=== PATIENT | male | born 1960 ===

== ENCOUNTER → 2020-04-22 15:55 | Outpatient (CLI) | payer OTHER ==
[~2020-04-22 15:55] MED LIST: BANOPHEN25 MG; CARAFATE1 GM PO; EYE WASH SOLUT; PRILOSEC OTC20 MG PO; SILDENAFIL CITR50 MG; [UNRECOGNIZED DRUG - OTHER]
== END | disposition home or self-care (01) ==
LOC: LAB 15:55
PROVIDERS: ATTEND Radiology Diagnostic Radiology
DX: N20.0 Calculus of kidney (principal)

== ENCOUNTER 2020-04-23 07:15 | Inpatient (IN) | payer OTHER ==
[~2020-04-23] VITALS: Ht 177.8 cm; Wt 70.3 kg
[2020-04-23] MEDS ORDERED: PRILOSEC OTC20 MG PO (11:40)
[2020-04-23] MEDS ORDERED: CARAFATE1 GM PO (11:40)
[2020-05-02] MEDS ORDERED: BANOPHEN25 MG (08:19)
[2020-05-02] MEDS ORDERED: SILDENAFIL CITR50 MG (08:19)
[2020-05-02] MEDS ORDERED: EYE WASH SOLUT (08:19)
[2020-05-02] MEDS ORDERED: [UNRECOGNIZED DRUG - OTHER] (08:19)
== END 2020-05-02 14:05 | disposition home or self-care (01) | DRG 343 ==
LOC: ADM 07:15 → EDSTATUS 07:15 → SURH 07:15 → O/R 05-02 06:42 → SURH 05-02 07:00 → O/R 05-02 14:05
PROVIDERS: ADMIT Colon & Rectal Surgery; ATTEND Colon & Rectal Surgery
PROC: 0DTJ4ZZ Resection of Appendix, Percutaneous Endoscopic Approach (ICD-10-PCS; principal; 2020-05-02 07:00)
DX: D12.1 Benign neoplasm of appendix (principal); I10 Essential (primary) hypertension

== ENCOUNTER 2020-04-23 08:28 | Outpatient (CLI) | payer OTHER ==
[2020-04-23] MEDS ORDERED: CARAFATE1 GM PO (11:40)
[2020-04-23] MEDS ORDERED: PRILOSEC OTC20 MG PO (11:40)
== END 2020-04-23 08:34 | disposition home or self-care (01) ==
LOC: TOM 08:28
DX: K63.5 Polyp of colon (principal)
CPT/HCPCS: 74177; Q9965